=== PATIENT | female | born 1975 | race Two or more races ===

== ENCOUNTER 2022-11-30 19:04 | Emergency (ER) | payer OTHER ==
[~2022-11-30] VITALS: Ht 152.4 cm; Wt 77.1 kg
[2022-11-30] MEDS ORDERED: CHLORTHALIDONE25 MG PO (19:23)
[2022-11-30] MEDS ORDERED: IRBESARTAN300 MG PO (19:23)
[2022-11-30] MEDS ORDERED: WELLBUTRIN SR150 MG PO (19:24)
[2022-11-30] MEDS ORDERED: AMBIEN10 MG PO (19:24)
[2022-11-30] MEDS ORDERED: CLONAZEPAM0.5 MG PO (19:24)
== END 2022-11-30 22:37 | disposition home or self-care (01) ==
LOC: ER 19:04
DX: R42 Dizziness and giddiness (principal)